=== PATIENT | female | born 1970 | race Caucasian/White ===

== ENCOUNTER 2018-09-14 13:20 | Emergency (ER) | payer OTHER, MEDICAID ==
[~2018-09-14] VITALS: Ht 167.6 cm; Wt 95.3 kg
[~2018-09-14 13:20] MED LIST: ADDERALL 10 MG10 MG PO; CELEXA20 MG PO; FLEXERIL PO; GABAPENTIN 100100 MG PO; HYDROCODON-ACE1 EAC7 PO; HYDROCODONE-AP1 EAC6 PO; HYDROXYZINE HCL25 M1 PO; LISINOPRIL10 MG PO; MEDROL DOSPAK21 TA1 PO; MEDROLDOSEPACK PO; NEXIUM40 MG PO; NORCO 5-325 TA1 EACH PO; PREDNISONE 10 M10 MG PO; PREDNISONE 20 M20 M1 PO; ROBAXIN 750 MG750 M1 PO
[2018-09-14] MEDS ORDERED: LISINOPRIL10 MG PO (13:32)
[2018-09-14] MEDS ORDERED: PROTONIX40 M2 PO (13:32)
[2018-09-14] MEDS ORDERED: NEURONTIN 300300 M1 PO (13:32)
[2018-09-14] MEDS ORDERED: ZOFRAN ODT4 MG (13:33)
[2018-09-14 14:23] LABS: ABSOLUTE EOSINOPHILS 0.1 thou/uL (0.0-0.7); ABSOLUTE LYMPHOCYTES 1.4 thou/uL (0.8-5.3); ABSOLUTE MONOCYTES 0.4 thou/uL (0.0-1.2); ABSOLUTE NEUTROPHILS 5.1 thou/uL (1.6-8.1); BASOPHILS 0.3 %; EOSINOPHILS 0.9 %; HEMATOCRIT 35.2 % (37.0-47.0); HEMOGLOBIN 11.7 gm/dL (12.0-15.0); LYMPHOCYTES 19.7 %; MCH 29.4 pg (26.0-34.0); MCHC 33.1 g/dL (28.0-37.0); MONOCYTES 6.3 %; MPV 8.1 fl. (7.2-11.1); NUCLEATED RBCS 0 /100WBC; PLATELET COUNT* 280 thou/uL (150-400); POLYS 72.8 %; RBC 3.96 mil/uL (4.20-5.00); RDW-CV 15.8 % (10.5-14.5); WBC 7.1 thou/uL (4.0-11.0)
[2018-09-14 14:33] LABS: CALCIUM 8.6 mg/dL (8.5-10.1); CREATININE 0.7 mg/dL (0.6-1.3); POTASSIUM 3.8 mmol/L (3.5-5.1)
[2018-09-14 14:37] LABS: ALBUMIN 3.5 g/dL (3.4-5.0); TOTAL BILIRUBIN 0.3 mg/dL (<0.1-1.0); TOTAL PROTEIN 7.1 g/dL (6.4-8.2)
[2018-09-14 15:21] LABS: URINE BILIRUBIN NEGATIVE (Negative); URINE BLOOD 3+ (Negative); URINE COLOR YELLOW; URINE GLUCOSE-RANDOM NEGATIVE (Negative); URINE KETONES NEGATIVE (Negative); URINE LEUKOCYTES-REFLEX NEGATIVE (Negative); URINE NITRITE-REFLEX NEGATIVE (Negative); URINE PROTEIN NEGATIVE (Negative); URINE UROBILINOGEN 0.2 E.U./dl (0.2-1.0)
[2018-09-14 15:25] LABS: URINE CLARITY HAZY
[2018-09-14 15:33] LABS: AMP/METHAMP Negative (Negative); BARBITURATES Negative (Negative); BENZODIAZEPINES Negative (Negative); COCAINE Negative (Negative); METHADONE Negative (Negative); OPIATES Negative (Negative); PCP Negative (Negative); THC POSITIVE (Negative)
[2018-09-14 15:43] LABS: BACTERIA-REFLEX None Seen /HPF (None Seen); CASTS None Seen /LPF (None Seen); CRYSTALS None Seen /LPF (None Seen); SQUAMOUS 4-10 Moderate /LPF (0-3); URINE RBC 0-2 Rare /HPF (0-2); URINE WBC-REFLEX None Seen /HPF (0-5)
[2018-09-14] MEDS ORDERED: BENTYL 20 MG TA20 M1 PO (15:46)
[2018-09-14 16:33] VITALS: BP 148/89
--- NOTE | 2018-09-16 11:04 | EKG ---
[place] [address] ELECTROCARDIOGRAM REPORT Name: ASPEN BAILON Room: [facility]#: [id number] Admission: 09/14/18 Attend Phys: Discharge: 09/14/18 Date of : 66 Report #: [id number] THIS REPORT FOR: //name// [facility] ED Test Date: 2018-09-14 Test Time: 15:05:02 Pat Name: ASPEN BAILON Department: Room: Gender: F Cell Room Supervisor: Shelby ARCHER : 1970 Requested By: Roxanne Rutledge Order Number: [id number] MD: Rich Gillespie Measurements Intervals [place] Rate: 75 P: 51 AK: 172 QRS: -19 QRSD: 161 T: 110 QT: 435 QTc: 486 Interpretive Statements Sinus rhythm Probable left atrial enlargement Left bundle branch block Compared to ECG 09/14/2016 17:43:32 No significant changes Electronically Signed On 09-16-2018 11:04:20 [employer] by Rich Gillespie [email or web address] <ELECTRONICALLY SIGNED> By: Rich Gillespie MD, [facility] 09/16/18 1104 1505 1505 Rich Gillespie MD, [facility] /EPI
== END 2018-09-14 16:34 | disposition home or self-care (01) ==
LOC: M.ERS 13:20
PROVIDERS: Nurse Practitioner Family
DX: K59.00 Constipation, unspecified (principal); K76.89 Other specified diseases of liver; N28.1 Cyst of kidney, acquired; I10 Essential (primary) hypertension; F41.9 Anxiety disorder, unspecified; M54.9 Dorsalgia, unspecified; G89.29 Other chronic pain; R11.2 Nausea with vomiting, unspecified

== ENCOUNTER 2020-10-09 10:28 | Emergency (ER) | payer OTHER ==
[~2020-10-09] VITALS: Ht 162.6 cm; Wt 90.7 kg
[~2020-10-09 10:28] MED LIST changes: +BENTYL 20 MG TA20 M1 PO; +NEURONTIN 300300 M1 PO; +PROTONIX40 M2 PO; +ZOFRAN ODT4 MG
[2020-10-09] MEDS ORDERED: FLEXERIL PO (10:47)
[2020-10-09] MEDS ORDERED: XANAX 0.5 MG0.5 M1 PO (10:47)
[2020-10-09] MEDS ORDERED: TRAMADOL 50 MG50 MG PO (10:47)
[2020-10-09 10:48] LABS: URINE BILIRUBIN NEGATIVE (Negative); URINE BLOOD TRACE (Negative); URINE CLARITY CLEAR; URINE COLOR YELLOW; URINE GLUCOSE-RANDOM NEGATIVE (Negative); URINE KETONES NEGATIVE (Negative); URINE LEUKOCYTES-REFLEX NEGATIVE (Negative); URINE NITRITE-REFLEX NEGATIVE (Negative); URINE PROTEIN NEGATIVE (Negative); URINE SPECIFIC GRAVITY 1.025 (1.005-1.030); URINE UROBILINOGEN 0.2 E.U./dl (0.2-1.0)
[2020-10-09 11:00] LABS: ABSOLUTE EOSINOPHILS 0.1 thou/uL (0.0-0.7); ABSOLUTE LYMPHOCYTES 1.6 thou/uL (0.8-5.3); ABSOLUTE MONOCYTES 0.4 thou/uL (0.0-1.2); BASOPHILS 0.8 %; EOSINOPHILS 3.2 %; HEMATOCRIT 33.3 % (37.0-47.0); HEMOGLOBIN 11.2 gm/dL (12.0-15.0); LYMPHOCYTES 39.1 %; MCH 30.7 pg (26.0-34.0); MCHC 33.8 g/dL (28.0-37.0); MCV 90.9 fL (80.0-100.0); MONOCYTES 8.5 %; MPV 7.7 fl. (7.2-11.1); NUCLEATED RBCS 0 /100WBC; PLATELET COUNT* 238 thou/uL (150-400); POLYS 48.4 %; RBC 3.66 mil/uL (4.20-5.00); RDW-CV 14.8 % (10.5-14.5); WBC 4.2 thou/uL (4.0-11.0)
[2020-10-09 11:09] LABS: CALCIUM 7.9 mg/dL (8.5-10.1); CREATININE 0.7 mg/dL (0.6-1.3); POTASSIUM 4.2 mmol/L (3.5-5.1)
[2020-10-09 11:13] LABS: ALBUMIN 3.2 g/dL (3.4-5.0); TOTAL BILIRUBIN 0.2 mg/dL (<0.1-1.0)
[2020-10-09 13:05] VITALS: BP 149/88
== END 2020-10-09 13:07 | disposition home or self-care (01) ==
LOC: M.ERS 10:28
PROVIDERS: Family Medicine
DX: R10.84 Generalized abdominal pain (principal); R11.2 Nausea with vomiting, unspecified; I10 Essential (primary) hypertension; K21.9 Gastro-esophageal reflux disease without esophagitis; G89.29 Other chronic pain; M54.9 Dorsalgia, unspecified; Z79.2 Long term (current) use of antibiotics; Z79.899 Other long term (current) drug therapy

== ENCOUNTER 2021-06-13 12:06 | Inpatient (IN) | payer OTHER ==
[~2021-06-13] VITALS: Ht 170.2 cm; Wt 98.4 kg
--- NOTE | ~2021-06-13 | PROC ---
[address] [address] PROCEDURE REPORT Name: ASPEN BAILON Room: [address]#: [id number] Admission: 06/13/21 Attend Phys: Yanet Kellogg Discharge: 06/15/21 Date of : 66 Report #: [id number] THIS REPORT FOR: cc: Dakota Vidales Matthew DO [facility],Medical Records Staff ~ For GI report, please see the Provation report in Perceptive 7 content. By: 0651Medical Records Staff CHRIS /EVARISTO
[~2021-06-13 12:06] MED LIST changes: +TRAMADOL 50 MG50 MG PO; +XANAX 0.5 MG0.5 M1 PO
[2021-06-13 12:09] VITALS: BP 123/54
[2021-06-13] MEDS ORDERED: LYRICA100 MG PO (12:12)
[2021-06-13 12:49] LABS: ABSOLUTE BASOPHILS 0.1 thou/uL (0.0-0.2); ABSOLUTE LYMPHOCYTES 1.8 thou/uL (0.8-5.3); ABSOLUTE MONOCYTES 1.1 thou/uL (0.0-1.2); ABSOLUTE NEUTROPHILS 16.1 thou/uL (1.6-8.1); BASOPHILS 0.4 %; EOSINOPHILS 0.1 %; HEMATOCRIT 42.6 % (37.0-47.0); HEMOGLOBIN 14.3 gm/dL (12.0-15.0); LYMPHOCYTES 9.6 %; MCH 30.8 pg (26.0-34.0); MCHC 33.7 g/dL (28.0-37.0); MCV 91.6 fL (80.0-100.0); MONOCYTES 5.7 %; MPV 7.7 fl. (7.2-11.1); NUCLEATED RBCS 0 /100WBC; PLATELET COUNT* 330 thou/uL (150-400); POLYS 84.2 %; RBC 4.65 mil/uL (4.20-5.00); RDW-CV 13.4 % (10.5-14.5); WBC 19.1 thou/uL (4.0-11.0)
[2021-06-13 12:56] LABS: CALCIUM 8.8 mg/dL (8.5-10.1); CREATININE 0.8 mg/dL (0.6-1.3); POTASSIUM 3.4 mmol/L (3.5-5.1)
[2021-06-13 13:00] LABS: ALBUMIN 3.9 g/dL (3.4-5.0); TOTAL BILIRUBIN 0.5 mg/dL (<0.1-1.0); TOTAL PROTEIN 7.8 g/dL (6.4-8.2)
[2021-06-13 16:00] VITALS: BP 160/95
[2021-06-13 16:35] VITALS: BP 169/101
[2021-06-13 17:41] VITALS: BP 160/95
[2021-06-13] MEDS ORDERED: PAXIL20 MG PO (18:18)
[2021-06-13] MEDS ORDERED: DRIZALMA SPRINK60 MG PO (18:19)
[2021-06-13 20:31] VITALS: BP 139/88
[2021-06-14 01:42] VITALS: BP 108/56
[2021-06-14 06:52] VITALS: BP 102/60
[2021-06-14 07:26] LABS: ABSOLUTE EOSINOPHILS 0.1 thou/uL (0.0-0.7); ABSOLUTE LYMPHOCYTES 1.9 thou/uL (0.8-5.3); ABSOLUTE MONOCYTES 0.7 thou/uL (0.0-1.2); ABSOLUTE NEUTROPHILS 7.1 thou/uL (1.6-8.1); BASOPHILS 0.4 %; EOSINOPHILS 1.1 %; HEMATOCRIT 35.3 % (37.0-47.0); MCH 31.5 pg (26.0-34.0); MCHC 34.2 g/dL (28.0-37.0); MCV 92.3 fL (80.0-100.0); MONOCYTES 7.1 %; MPV 7.8 fl. (7.2-11.1); NUCLEATED RBCS 0 /100WBC; PLATELET COUNT* 261 thou/uL (150-400); POLYS 72.4 %; RBC 3.83 mil/uL (4.20-5.00); RDW-CV 13.4 % (10.5-14.5); WBC 9.8 thou/uL (4.0-11.0)
[2021-06-14 07:33] LABS: HEMOGLOBIN 12.1 gm/dL (12.0-15.0)
[2021-06-14 07:45] LABS: CALCIUM 8.3 mg/dL (8.5-10.1); CREATININE 0.6 mg/dL (0.6-1.3); POTASSIUM 3.6 mmol/L (3.5-5.1)
[2021-06-14 07:49] LABS: MAGNESIUM 1.8 mg/dL (1.8-2.4); PHOSPHORUS* 3.1 mg/dL (2.5-4.9)
[2021-06-14 08:00] VITALS: BP 141/83
--- NOTE | 2021-06-14 10:38 | EKG ---
[place] [address] ELECTROCARDIOGRAM REPORT Name: ASPEN BAILON Room: [address] ADM IN .R.#: [id number] Admission: 06/13/21 Attend Phys: Rubin Nayak Discharge: Date of : 66 Date of Service: 06/13/21 1221 Report #: [id number] THIS REPORT FOR: //name// [facility] ED Test Date: 2021-06-13 Test Time: 12:21:25 Pat Name: ASPEN BAILON Department: Room: [facility] Gender: F Cam Maker: LESLY : 1970 Requested By: Grupo Ley Order Number: [id number] MD: Albert Callejas Measurements Intervals [place] Rate: 116 P: 71 FL: 138 QRS: -45 QRSD: 144 T: 115 QT: 362 QTc: 503 Interpretive Statements Sinus tachycardia Probable left atrial enlargement Left bundle branch block Compared to ECG 09/14/2018 15:05:02 Sinus rhythm no longer present Electronically Signed On 06-14-2021 10:38:33 CDT by Albert Callejas [email or web address] <ELECTRONICALLY SIGNED> By: Albert Callejas MD, FAC 06/14/21 1038 1221 1221 Albert Callejas MD, FAC /EPI
[2021-06-14 12:00] VITALS: BP 136/75
[2021-06-14 20:48] VITALS: BP 146/83
[2021-06-15] VITALS: BP 134/70
[2021-06-15 04:00] VITALS: BP 136/72
[2021-06-15 08:00] VITALS: BP 154/89
[2021-06-15 11:12] VITALS: BP 155/84
[2021-06-15 15:51] VITALS: BP 132/80
[2021-06-15] MEDS ORDERED: CARAFATE 11 GM/10 M1 PO (16:14)
[2021-06-15] MEDS ORDERED: AUGMENTIN 875-1 EACH PO (16:18)
[2021-06-15] MEDS ORDERED: PHENERGAN 25 MG25 M1 PO (16:19)
--- NOTE | 2021-06-16 14:07 | PATH ---
[address] [address] PATHOLOGY RPT PROCEDURE Name: ASPEN BAILON Room: [address] IN .R.#: [id number] Admission: 06/13/21 Date of : 66 Discharge: 06/15/21 Report #: [id number] Path Case #: [id number] [facility] Accession Number: [id number] . 01 Material submitted: . PART A: gastrointestinal site - GASTRIC BIOPSY PART B: duodenum - DUODENITIS/DUODENAL ULCER . 01 Clinical history: . EGD IN OR GI BLEED, ESOPHAGITIS . 02 Diagnosis: A. Gastric biopsy: - Mild nonspecific chronic gastritis, negative for Helicobacter pylori organisms and dysplasia. . B. Duodenitis/duodenal ulcer: - Nonspecific severe active duodenitis with ulceration, negative for granulomas, viral inclusions and dysplasia/adenomatous change. . (JOIE:angel; 06/16/2021) [facility] 06/16/2021 1201 Local . 02 Comment: Special stain on A: H. pylori immuno . (JOIE:mml; 06/16/2021) . 02 Electronically signed: . Duane Chaves MD, Pathologist NPI- [id number] . 01 Gross description: . A. The specimen is submitted in formalin, labeled "Aspen Bailon, gastric biopsy". Received are 4 segments of pale lemus tissue ranging in size from 0.3 to 0.6 cm in maximum dimensions. The specimen is submitted entirely in cassette A1. . B. The specimen is received in formalin, labeled "Aspen Bailon, duodenitis/duodenal ulcer". Received are 2 segments of pale lemus tissue both measuring 0.3 cm in maximum dimensions. The specimen is submitted entirely in cassette B1. ([facility]; 06/15/2021) NRI/NRI 06/15/20212050 Local . 02 Pathologist provided ICD-10: K29.50, K29.80, K26.9 [place] [address] PATHOLOGY RPT PROCEDURE Name: ASEPN BAILON Room: [address] IN .R.#: [id number] Admission: 06/13/21 Date of : 66 Discharge: 06/15/21 Report #: [id number] Path Case #: [id number] . 02 CPT . 354269, [id number], [id number] Specimen Comment: A courtesy copy of this report has been sent to [phone] Specimen Comment: [phone], Specimen Comment: Report sent to , DR MCGARRY / DR BERRY Performed at: [address], [place], [place] [id number] MD Gallo Page MD Phone: [phone] Performed at: [facility] [address], [place], [place] [id number] MD Duane Chaves MD Phone: [phone]
--- NOTE | 2021-06-16 15:41 | CON ---
[address] [address] CONSULTATION Name: ASPEN BAILON Room: [address]R.#: [id number] Admission: 06/13/21 Attend Phys: Yanet Kellogg Discharge: 06/15/21 Date of : 66 Report #: [id number] THIS REPORT FOR: cc: Dakota Vidales,Ivan Capps MD ~ cc: Dakota Vidales DO DATE OF CONSULTATION: 06/14/2021 Please note at the time of this dictation, the patient was seen and physically examined by myself. REASON FOR CONSULTATION: Abnormal CT and vomiting, severe GERD. HISTORY OF PRESENT ILLNESS: This is a 50-year-old female who states that she had her wisdom tooth that was infected removed last week. She was placed on cephalexin she thinks, which she had completed her antibiotics prior to her onset of nausea and vomiting starting. She states also that she takes diclofenac for her chronic sciatica that she has. She states that the day prior to admission she had been having the nausea and vomiting; however, 2 days prior to that, she was just having some nausea and just did not feel very good and then the vomiting started. She denied any bright red blood or any coffee-ground emesis. She also was having epigastric pain as well as severe heartburn. She states she was vomiting every hour. She did try to take some Tylenol. She had 2 whiskey and Cokes and then precipitated vomiting after that. She also tried to take down some Pepto-Bismol and she noticed that her stool was black and tarry looking. However, on admission, her hemoglobin was 14.3. The patient did state that she had an EGD and a colonoscopy done at [facility] last year and everything was normal. ALLERGIES: No known drug allergies. MEDICATIONS FROM HOME: Protonix daily, Zestril, Zofran, Ultram, Xanax, Flexeril and Lyrica. PAST MEDICAL HISTORY: Chronic back pain, chronic sciatica, GERD, anxiety, hypertension. PAST SURGICAL HISTORY: None. FAMILY HISTORY: Negative for any GI or female cancers. SOCIAL HISTORY: The patient does smoke tobacco 1 pack per day. She will have several drinks a month, but not on a weekly basis she states; however, [place] [address] CONSULTATION Name: ASPEN BAILON Room: [address]#: [id number] Admission: 06/13/21 Attend Phys: Yanet Kellogg Discharge: 06/15/21 Date of : 66 Report #: [id number] prior to her admission. She does smoke marijuana regularly to help with her anxiety. REVIEW OF SYSTEMS: Twelve-point review of systems is essentially negative except what is mentioned in the HPI. PHYSICAL EXAMINATION: VITAL SIGNS: Temperature 36.8, pulse 93, respirations 20, blood pressure 102/60. HEART: Regular rate and rhythm. LUNGS: Clear. ABDOMEN: Soft, positive bowel sounds in all 4 quadrants with tenderness noted in the epigastric area. LABORATORY DATA: Hemoglobin this morning is 12.1, white count is 9.8, platelets 261. GFR 75. LFTs are completely normal and BUN is normal as well. CT showed some mild lower wall esophageal thickening. IMPRESSION: 1. Nausea and vomiting. 2. Severe heartburn. 3. Epigastric pain. 4. Chronic nonsteroidal anti-inflammatory drugs use daily. 5. Melanotic stool, took Pepto-Bismol. 6. Leukocytosis. 7. THC daily use. PLAN: 1. EGD today with Dr. Shah. 2. Protonix 40 mg IV b.i.d. 3. Further recommendations to be made after the procedure has been performed. Thank you for allowing us to participate in this patient's care. Please do not hesitate to call with any questions regarding this consult. <ELECTRONICALLY SIGNED> By: Ivan Shah MD 06/16/21 1541 0717 0730Ivan Shah MD /nt
== END 2021-06-15 18:30 | disposition home or self-care (01) | DRG 368 ==
LOC: M.ERS 12:06 → M.2W 14:13 → M.TBA-ER 14:13 → M.2W 16:37
PROVIDERS: Family Medicine; ADMIT Internal Medicine; ATTEND Internal Medicine
PROC: 0DB98ZX Excision of Duodenum, Via Natural or Artificial Opening Endoscopic, Diagnostic (ICD-10-PCS; principal; 2021-06-14)
DX: K21.01 Gastro-esophageal reflux disease with esophagitis, with bleeding (principal); K29.71 Gastritis, unspecified, with bleeding; K26.4 Chronic or unspecified duodenal ulcer with hemorrhage; G89.29 Other chronic pain; M54.9 Dorsalgia, unspecified; I10 Essential (primary) hypertension; F41.9 Anxiety disorder, unspecified; D72.829 Elevated white blood cell count, unspecified; R12 Heartburn; I95.9 Hypotension, unspecified; E87.6 Hypokalemia; E86.0 Dehydration; D64.9 Anemia, unspecified; K44.9 Diaphragmatic hernia without obstruction or gangrene; Z20.822 Contact with and (suspected) exposure to COVID-19; Z79.1 Long term (current) use of non-steroidal anti-inflammatories (NSAID)